=== PATIENT | male | born 1980 | race Caucasian/White ===

== ENCOUNTER 2020-09-10 16:59 | Outpatient (REF) | payer OTHER, SELFPAY | END 2020-09-10 17:00 | disposition home or self-care (01) | LOC: HO.LAB 16:59 | PROVIDERS: Visit Provider Internal Medicine | DX: Z20.822 Contact with and (suspected) exposure to COVID-19 (principal) | CPT/HCPCS: 36415; C9803; U0003 ==

== ENCOUNTER 2024-08-16 09:15 | Outpatient (REF) | payer OTHER, SELFPAY ==
[2024-08-16 09:27] LABS: MANUAL DIFF FLAG NO
[2024-08-16 10:07] LABS: Basophils Absolute Auto 0.1 X10*3/uL (0.0-0.2); Basophils Percent Auto 1.2 % (0-2); Eosinophils Absolute Auto 0.4 X10*3/uL (0.0-0.4); Eosinophils Percent Auto 5.8 % (0-4); Hematocrit 43.8 % (42.0-52.0); Hemoglobin 15.2 g/dl (14.0-18.0); Imm Gran Abs Auto 0.02 X10*3/uL (0.00-0.03); Imm Gran Pct Auto 0.3 % (0.0-0.4); Lymphocytes Absolute Auto 1.8 X10*3/uL (1.2-4.9); Lymphocytes Percent Auto 26.4 % (20-40); Mean Corpuscular HGB Conc 34.7 g/dl (31.0-36.0); Mean Corpuscular Volume 83.4 fL (80.0-98.0); Mean Platelet Volume 8.8 fL (9.4-12.4); Monocytes Absolute Auto 0.9 X10*3/uL (0.1-1.2); Monocytes Percent Auto 13.1 % (2-11); Neutrophils Absolute Auto 3.6 x10*3/uL (2.0-8.3); Neutrophils Percent Auto 53.2 % (45-73); Platelet Count 281 X10*3/uL (160-400); Red Blood Count 5.25 X10*6/uL (4.60-5.80); White Blood Count 6.7 X10*3/uL (4.8-10.8)
[2024-08-16 10:58] LABS: Alanine Aminotransferase 93 U/L (0-40); Albumin Level 4.4 g/dL (3.5-5.0); Alkaline Phosphatase 108 U/L (39-117); Anion Gap 11 (12-20); Aspartate Amino Transferase 45 U/L (5-37); Bilirubin Total 0.7 mg/dL (0.0-1.0); Blood Urea Nitrogen 14 mg/dL (9-16); Calcium 9.2 mg/dL (8.4-10.2); Carbon Dioxide 27 mmol/L (22-29); Chloride 106 mmol/L (96-108); Cholesterol 194 mg/dL (<200); Estimated Glomerular Filt Rate > 60; Glucose Random 107 mg/dL (60-115); HDL Cholesterol 37 mg/dL (>40); LDL Cholesterol Calculated 117 mg/dL (<100); Potassium 4.3 mmol/L (3.3-5.1); Sodium 140 mmol/L (135-145); Total Protein 7.5 g/dL (6.5-8.0); Triglycerides 200 mg/dL (<150)
[2024-08-16 11:18] LABS: Ferritin 572 ng/mL (20-250)
== END 2024-08-16 09:16 | disposition home or self-care (01) ==
LOC: HO.LAB 09:15
PROVIDERS: PCP Internal Medicine; Visit Provider Internal Medicine
DX: Z00.01 Encounter for general adult medical examination with abnormal findings (principal); E83.110 Hereditary hemochromatosis; M51.16 Intervertebral disc disorders with radiculopathy, lumbar region; M79.672 Pain in left foot
CPT/HCPCS: 36415; 80053; 80061; 81256; 82728; 85025

== ENCOUNTER 2024-11-19 09:03 | Outpatient (REF) | payer OTHER, SELFPAY ==
--- NOTE | ~2024-11-19 | US_ITS ---
EXAMINATION: US ABDOMEN COMPLETE WITH LIVER ELASTOGRAPHY HISTORY: elevated LFT's TECHNIQUE: Real-time grayscale ultrasound imaging of the abdomen was performed and images were reviewed. COMPARISON: There are no prior studies for comparison. FINDINGS: Liver: The right lobe of the liver measures 19.7 cm in size. The left lobe of the liver measures 9.7 cm in size. The liver demonstrates normal homogeneous echotexture. No focal mass or intrahepatic biliary ductal dilatation is identified. There is normal hepatopedal flow in the portal vein. Ultrasound elastography of the liver was performed with 10 separate measurements of the liver parenchyma with the patient in the supine position. Measurements were obtained approximately 2 cm below Wendi's capsule and perpendicular to the capsule. Images are of satisfactory quality. The median shear wave velocity is 1.36 m/s. The interquartile range/median (IQR/median) is 0.08. Gallbladder and biliary tree: The gallbladder is unremarkable, without evidence of calculi, wall thickening, or pericholecystic fluid. There is no sonographic Rodriguez sign. The common bile duct is normal in caliber measuring 3 mm. Kidneys: The right kidney measures 12.5 cm in length. The left kidney measures 11.9 cm in length. The kidneys are unremarkable, without evidence of masses, hydronephrosis, or calculi. Pancreas: The pancreatic head, neck, and body are unremarkable. The pancreatic tail is obscured by bowel gas. Spleen: The spleen is normal in size and contour, measuring 11.6 cm in length. There are calcifications in the spleen consistent with old granulomatous disease. Abdominal aorta and inferior vena cava: The visualized portions of the abdominal aorta and inferior vena cava are normal in caliber. There is no free fluid in the abdomen. US/US abdomen comp w elastography IMPRESSION: Hepatomegaly. The median shear wave velocity in the liver is 1.36 m/s, corresponding to a median liver stiffness of 5.74 kPa. The IQR/median value is 0.08. This is indicative of a quality data set. Findings are indicative of a low elastography value which rules out advanced chronic liver disease in asymptomatic patients. REFERENCE: Society of Radiologists in Ultrasound Liver Stiffness Thresholds (2020): LIVER STIFFNESS THRESHOLDS: *Shear wave velocity less than 1.3 m/s (Liver Stiffness equal or less than 5 kPa): High probability of being normal. *Shear wave velocity less than 1.7 m/s (Liver Stiffness less than 9 kPa): In the absence of other known clinical signs, rules out compensated advanced chronic liver disease. *Shear wave velocity between 1.7-2.1 m/s (Liver Stiffness 9-13 kPa): Suggestive of compensated advanced chronic liver disease but need further test for confirmation. *Shear wave velocity between 2.1-2.4 m/s (Liver Stiffness 13-17 kPa): Rules in compensated advanced chronic liver disease. *Shear wave velocity greater than 2.4 m/s (Liver Stiffness over 17 kPa): Suggestive of clinically significant portal hypertension. QUALITY OF DATA SET: *IQR/Median value equal or less than 0.15 implies a quality data set. *IQR/Median value over 0.15 implies a poor quality data set. SIGNIFICANT CHANGE FROM PRIOR EXAM: Significant change if liver stiffness measurement is 10% or greater from prior exam. OTHER CONSIDERATIONS: The stage of liver fibrosis may be overestimated in the setting of acute hepatitis, liver inflammation, elevated liver function tests, hepatic vascular congestion, obstructive cholestasis, non-fasting state, and infiltrative diseases such as amyloidosis and lymphoma. In some patients with NAFLD, the liver stiffness thresholds for compensated advanced chronic liver disease may be lower. In causes other than viral hepatitis and NAFLD, liver stiffness thresholds are not well established. Electronically signed by: All Mariee MD 11/19/2024 10:20 AM EDT
== END 2024-11-19 09:04 | disposition home or self-care (01) ==
LOC: HO.US 09:03
PROVIDERS: PCP Internal Medicine; Visit Provider Internal Medicine
DX: R74.01 Elevation of levels of liver transaminase levels (principal)
CPT/HCPCS: 76700; 76981

== ENCOUNTER → 2024-11-19 09:25 | Outpatient (BNV) | payer OTHER, SELFPAY | PROVIDERS: PCP Internal Medicine; Visit Provider Radiology Diagnostic Radiology | DX: R16.0 Hepatomegaly, not elsewhere classified (principal) | CPT/HCPCS: 76700; 76981 ==

== ENCOUNTER 2024-12-02 13:29 | Outpatient (REF) | payer OTHER, SELFPAY ==
[2024-12-02 16:04] LABS: Folate 9.6 ng/mL (> or = 4.0); Vitamin B12 294 pg/mL (200-900)
[2024-12-02 19:20] LABS: Iron 130 mcg/dL (45-160); Percent Iron Saturation 34 % (15-50); Total Iron Binding Capacity 377 mcg/dL (228-428); Unsaturated Iron Binding 247 ug/dL
[2024-12-02 19:28] LABS: Free T4 (Free Thyroxine) 1.06 ng/dL (0.71-1.85); TSH reflex Free T4 2.89 uIU/mL (0.32-4.0); Vitamin D 25-OH Total 19.4 ng/mL (>30)
[2024-12-06 00:48] LABS: PSA, Ultra Sensitive 0.59 ng/mL
== END 2024-12-02 13:30 | disposition home or self-care (01) ==
LOC: HO.LAB 13:29
PROVIDERS: PCP Internal Medicine
DX: E78.9 Disorder of lipoprotein metabolism, unspecified (principal); R79.89 Other specified abnormal findings of blood chemistry; K21.9 Gastro-esophageal reflux disease without esophagitis; R19.7 Diarrhea, unspecified; Z83.49 Family history of other endocrine, nutritional and metabolic diseases; Z12.5 Encounter for screening for malignant neoplasm of prostate; Z00.00 Encounter for general adult medical examination without abnormal findings
CPT/HCPCS: 36415; 82306; 82607; 82746; 83540; 84153; 84439; 84443; 96127

== ENCOUNTER 2024-12-02 13:29 | Outpatient (AMB) | payer OTHER, SELFPAY ==
--- NOTE | 2024-12-02 13:36 | MHC.PC.OV ---
Vital Signs 12/02/24 13:39 Height 6 ft 3.2 in Weight 291 lb 4 oz BMI 36.2 BP 122/76 Blood Pressure Location Lt brachial Position Sitting Pulse 88 Pulse Source Pulse Oximeter Temp 96.8 F Temp Source Temporal Artery Scan Pulse Oximetry (%) 94 Oxygen Delivery Method Room Air Intake Visit Reasons: establish care Intake Note: Patient is a new patient here to establish care for Hx work injury, High Iron, Possible high cholesterol, Hx of back pain. Transferring care from Dr Mortensen ([address]) . Medical records been have not requested and have not received. Requesting review of lab results from 07/2024 and Liver US done on 11/19/24. Telegraph And Teletype Operator Required: No Tallier: Present Accompanied by: Spouse Allergies No Known Allergies Allergy (Verified 12/02/24 13:50) Medication List - Last Reconciled 12/02/24 by Kimmy Browne PA-C No Known Home Meds Tobacco use date assessed: 12/02/24 Dental Screening Dental Screen Date: 12/02/24 Did you have a dental visit in the last 12 months?: No Did you have a dental problem in the last 6 months where you did not have access to dental care?: No Was dental information given to patient?: No HPI establish care HPI Details 44-year-old male coming to the office with the 1st time. Presenting with elevated serum iron levels, gastrointestinal symptoms, back pain, and a family history of hemochromatosis. Serum iron elevation was noted in July following routine checks, leading to an ultrasound identifying a large but fibrosis-free liver, mitigating concerns of hemochromatosis due to negative genetic testing. Family history is significant for hemochromatosis requiring therapeutic phlebotomy, raising concerns over hereditary conditions. Gastrointestinal discomfort is characterized by frequent defecation, sometimes accompanied by emesis, abdominal pain, and lack of consistent dietary triggers. Symptoms exhibit features of irritable bowel syndrome (IBS) with potential reflux, which suggests multifactorial causes, possibly overlapping with dietary components and reactive gastroesophageal conditions. colonoscopy: will be due this year [facility] Surgical History History of appendectomy Family History Father CVA (cerebral vascular accident) Hemochromatosis Paternal Aunt Pancreatic cancer Social History Housing: House Alcohol intake: never Patient Tobacco Use Status: Never used Tobacco e-Cigarette/Vaping Use: Never Used Second Hand Smoke Exposure: No service: No Current occupational status: employed Current occupation: [employer] Cognitive needs: No Hearing needs: No Vision needs: No Questionnaire PHQ-9 Over the last 2 weeks, how often have you been bothered by any of the following problems? 1. Little interest or pleasure in doing things: not at all 2. Feeling down, depressed, or hopeless: not at all 3. Trouble falling or staying asleep, or sleeping too much: not at all 4. Feeling tired or having little energy: not at all 5. Poor appetite or overeating: not at all 6. Feeling bad about yourself - or that you are a failure or have let yourself or your family down: not at all 7. Trouble concentrating on things, such as reading the newspaper or watching television: not at all 8. Moving or speaking so slowly that other people could have noticed. Or the opposite - being so fidgety or restless that you have been moving around a lot more than usual: not at all 9. Thoughts that you would be better off or of hurting yourself in some way: not at all Total score: 0 Depression Screening Interpretation: Negative Depression Screening Done: Yes Source: Developed by Drs. All Treadwell, Dariana Ahmadi, Suman Darby and colleagues, with an educational jazmin from [employer]. Thrive Questionnaire Date Thrive assessed: 12/02/24 I am a: Patient What is your living situation today?: I have a steady place to live Within the past 12 months, did the food you bought not last and you didn't have the money to get more?: Never true Within the past 12 months, did you worry whether your food would run out before you got money to buy more?: Never true Do you have trouble paying for medicines?: No Do you have trouble getting transportation to medical appointments?: No Do you have trouble paying your heating and electricity bill?: No Do you have trouble taking care of your child, family member or friend?: No Do you have trouble with day-to-day activities such as bathing, preparing meals, shopping, managing finances, etc.?: No Are you currently unemployed and looking for a job?: No Are you interested in more education?: No Please select the resources that you would like help with: None Currently or been in a relationship where the following occur: No concerns reported THRIVE Score: 0 AUDIT C Alcohol Use Questionnaire (AUDIT-C) 1. How often do you have a drink containing alcohol?: Monthly or less 2. How many drinks containing alcohol do you have on a typical day when you are drinking?: 1 or 2 3. How often do you have six or more drinks on one occasion?: Never Total Score: 1 RENAN-7 AMB Questionnaire RENAN-7 Date RENAN - 7 assessed: 12/02/24 Feeling nervous, anxious, or on edge: 0 = Not at all Not being able to stop or control worryin = Not at all Worrying too much about different things: 0 = Not at all Trouble relaxin = Not at all Being so restless that it is hard to sit still: 0 = Not at all Becoming easily annoyed or irritable: 0 = Not at all Feeling afraid as if something awful might happen: 0 = Not at all Total RENAN-7 score (0-4 normal; 5-9 mild; 10-14 moderate; 15-21 severe): 0 Source: Developed by Drs. All Treadwell, Dariana Ahmadi, Suman Darby and colleagues, with an educational jazmin from [employer]. RENAN-7 Assessment Billing RENAN-7 Assessment Tool: RENAN-7 Assessment 14400 Review of Systems Const Denies body aches, Denies chills, Denies fever(s), Denies headache(s) and Denies poor appetite Eyes Reports no additional complaints ENT Denies dizziness and Denies headache(s) Card Denies chest pain, Denies lightheadedness and Denies dyspnea Resp Denies cough and Denies dyspnea GI Denies abdominal pain, Denies constipation, Reports dyspepsia, Reports heartburn, Denies diarrhea, Reports loose stools, Denies nausea and Denies vomiting Reports no additional complaints Musc Reports no additional complaints and Denies abnormal gait Skin/Breast Reports system reviewed and no additional complaints, except as documented Neuro Denies abnormal gait, Denies dizziness and Denies headache(s) Psych Reports no additional complaints Physical exam (Primary Care) Vital Signs: Last Vital Signs Temp 96.8 F 12/02/24 13:39 Pulse 88 12/02/24 13:39 BP 122/76 12/02/24 13:39 Pulse Ox 94 12/02/24 13:39 Oxygen Delivery Method Room Air 12/02/24 13:39 BMI result Body Mass Index 36.2 Tobacco/Smoking Status: Tobacco use Status Tobacco use date assessed 12/02/24 12/02/24 13:38 Patient Tobacco Use Status Never used Tobacco 12/02/24 13:38 e-Cigarette/Vaping Use Never Used 12/02/24 13:38 PHQ-9: PHQ-9 Score PHQ-9: Total score 0 12/02/24 13:38 Depression Screening Interpretation: Negative Thrive Assessment: Date of Thrive Assessment Date Thrive assessed 12/02/24 12/02/24 13:38 Currently or been in a relationship where the following occur: No concerns reported Const General: cooperative, healthy appearing, comfortable and no acute distress Orientation/consciousness: patient oriented x3 HENMT Head: Yes normocephalic Ears: hearing grossly normal bilaterally General nose exam: Normal external nose present Eyes General: appearance normal, both eyes and all related structures Conjunctivae: conjunctivae normal Neck Neck: Yes full ROM and Yes no lymphadenopathy Resp Effort & Inspection: normal respiratory effort Auscultation: clear to auscultation bilaterally, no crackles, no rales, no rhonchi and no wheezes Cardio Rate: regular rate Rhythm: regular rhythm Skin General skin exam: no rashes or lesions noted Neuro General: patient oriented x3 Gait exam (Neuro): Normal gait present Extrem General: Yes normal to inspection, Yes full ROM and No edema Psych Affect: normal affect Attitude: cooperative Insight: Good insight present (Psych) Judgement: Good judgement present (Psych) Coding Level of Care Code New Pt Level 4 (71168) Diagnoses Borderline high cholesterol E78.9 High serum ferritin R79.89 Family history of hemochromatosis Z83.49 GERD (gastroesophageal reflux disease) K21.9 Frequent loose stools R19.7 Additional Codes ERNAN-7 Assessment Billing - RENAN-7 Assessment Tool: RENAN-7 Assessment 97960 ([id number]) Assessment & Plan Assessment & Plan (1) Borderline high cholesterol: Code(s): E78.9 - Disorder of lipoprotein metabolism, unspecified Category: Medical Plan: Avoid foods that are high in cholesterol such as red meat, fried foods, eggs and baked goods. Triglyceride goal of less than 150 and LDL goal of less than 130 (2) High serum ferritin: Code(s): R79.89 - Other specified abnormal findings of blood chemistry Category: Medical Plan: Patient having high serum ferritin plan to order for complete iron profile and referral placed to hematology for further evaluation. Patient has a family history of hemochromatosis in his father who requires routine phlebotomy. Recent liver fibrosis scan negative (3) Family history of hemochromatosis: Code(s): Z83.49 - Family history of other endocrine, nutritional and metabolic diseases Category: Medical Plan: See above plan (4) GERD (gastroesophageal reflux disease): Code(s): K21.9 - Gastro-esophageal reflux disease without esophagitis Category: Medical Plan: Avoid trigger foods such as citrus, tomato products, soda, caffeine, spicy foods and other foods that may be irritating to your stomach. Avoid laying flat 3-4 hours after eating and elevate the head of the bed 30 degrees to prevent acid from moving into the esophagus. Plan to start on omeprazole and monitor for symptom improvement. (5) Frequent loose stools: Code(s): R19.7 - Diarrhea, unspecified Category: Medical Plan: Patient has symptoms consistent with possible IBS. Advised low FODMAP diet, incorporating a fiber supplement and using simethicone as needed for gas and bloating. Patient will follow up in 3 months at that time can consider referral to GI if symptoms have not improved. Patient denies any change in stool caliber or blood in the stool. Plan After our conversation, we determined that monitoring elevated serum iron levels is necessary, and I advised follow-up with hematology due to the patient?s family history of hemochromatosis. The proposed management for gastrointestinal concerns includes beginning a low FODMAP diet, adding a fiber supplement, and prescribing omeprazole for symptom relief from reflux. I provided instructions on utilizing simethicone as needed for gas-related discomfort. We also discussed the importance of dietary modifications to address elevated triglycerides and cholesterol levels. I emphasized dietary changes and exercises as part of cardiovascular risk reduction efforts. Thyroid function and further bloodwork evaluations have been requested to supplement our understanding of the patient's health status. Additionally, lipid management shall be monitored through a planned lipid panel. Given symptoms of back pain, I recommended modified physical activity until the condition improves. This note was constructed using voice recognition software. While every effort has been made to ensure accuracy and field pipe lines supervisor, still areas may have been included sometimes these areas may affect the content or meeting of the given symptoms. Total time spent caring for the patient today was 30 minutes. This includes time spent before the visit reviewing the chart, time spent during the visit, and time spent after the visit and documentation. Patient was informed and verbally consented to the use of an ambient scribe for clinic note documentation during this visit. Orders: Orders IRON PROFILE Today R79.89 - Other specified abnormal findings of blood chemistry TSH reflex Free T4 Today Z00.00 - Encounter for general adult medical examination without abnormal findings Vitamin B12 and Folate Today Z00.00 - Encounter for general adult medical examination without abnormal findings Vitamin D 25-OH Total Today Z00.00 - Encounter for general adult medical examination without abnormal findings PSA, Ultra Sensitive Today Z00.00 - Encounter for general adult medical examination without abnormal findings Free T4 (Free Thyroxine) Today Z00.00 - Encounter for general adult medical examination without abnormal findings Referrals Hematology & Oncology Referral R79.89 - Other specified abnormal findings of blood chemistry, Z83.49 - Family history of other endocrine, nutritional and metabolic diseases Medications: New simethicone (Gas-X Extra Strength) 125 mg PO TID PRN 30 tabs 0RF abdominal distention omeprazole 20 mg PO DAILY 90 caps 0RF
[2024-12-02 13:39] VITALS: BP 122/76; PULSE 88; TEMP 36; O2SAT 94; BMI 36.2
== END 2024-12-02 14:22 | disposition home or self-care (01) ==
LOC: HO.HMCH 13:30
DX: E78.9 Disorder of lipoprotein metabolism, unspecified (principal); R79.89 Other specified abnormal findings of blood chemistry; Z83.49 Family history of other endocrine, nutritional and metabolic diseases; K21.9 Gastro-esophageal reflux disease without esophagitis; R19.7 Diarrhea, unspecified

== ENCOUNTER → 2024-12-30 10:55 | Outpatient (BNV) | payer OTHER, SELFPAY | PROVIDERS: Visit Provider Internal Medicine | DX: R77.8 Other specified abnormalities of plasma proteins (principal) | CPT/HCPCS: 99204 ==

== ENCOUNTER 2025-03-05 10:24 | Outpatient (AMB) | payer OTHER, SELFPAY ==
--- NOTE | 2025-03-05 10:28 | A.OFFPC_ITS ---
Vital Signs 03/05/25 10:30 Height 6 ft 4 in Weight 286 lb 4 oz BMI 34.8 BP 138/80 Blood Pressure Location Lt brachial Position Sitting Pulse 66 Pulse Source Pulse Oximeter Pulse Oximetry (%) 98 Oxygen Delivery Method Room Air Intake Visit Reasons: f/u GERD Youth Counselor Required: No Accompanied by: Self / Same As Patient Allergies No Known Allergies Allergy (Verified 03/05/25 11:02) Medication List - Last Reconciled 03/05/25 by Kimmy Browne PA-C cholecalciferol (vitamin D3) 25 mcg PO DAILY cyanocobalamin (vitamin B-12) (Vitamin B-12) 500 mcg (1/2 x 1,000 mcg) PO DAILY omeprazole 20 mg PO DAILY Tobacco use date assessed: 12/02/24 Dental Screening Dental Screen Date: 03/05/25 Did you have a dental visit in the last 12 months?: No Did you have a dental problem in the last 6 months where you did not have access to dental care?: No Was dental information given to patient?: No HPI f/u GERD HPI Details 44-year-old male with past medical histo ry of hypercholesterolemia, GERD last seen 11/2024 coming in for follow up.? In review of the notes, patient was seen by Hematology/Oncology for elevated ferritin advised to cut back on dietary iron sources and follow up in 6 months.? Presenting with gastroesophageal reflux disease and monitoring of iron levels due to a family history of hemochromatosis. The patient reports using omeprazole daily, which has been effective in managing symptoms. He experiences coughing in the morning, which is attributed to acid reflux. The patient has been advised to avoid eating 2-3 hours before bedtime and to sleep with an elevated pillow. The patient has a family history of hemochromatosis and has been monitored by a cloth finishing range back tender. Recent lab results show a decrease in iron levels from 572 to 266, and liver tests have normalized. The patient reports difficulty swallowing, requiring frequent drinking during meals to prevent food from getting stuck. A barium swallow test has been ordered to assess for esophageal narrowing. [facility] Medical History Back injury Surgical History History of appendectomy Family History Father CVA (cerebral vascular accident) Hemochromatosis Paternal Aunt Pancreatic cancer Social History Household Members: Spouse and Children Housing: House Alcohol intake: never Patient Tobacco Use Status: Never used Tobacco e-Cigarette/Vaping Use: Never Used Second Hand Smoke Exposure: No service: No Current occupational status: employed Current occupation: [employer] Cognitive needs: No Hearing needs: No Vision needs: No Questionnaire PHQ-9 Over the last 2 weeks, how often have you been bothered by any of the following problems? 1. Little interest or pleasure in doing things: not at all 2. Feeling down, depressed, or hopeless: not at all 3. Trouble falling or staying asleep, or sleeping too much: not at all 4. Feeling tired or having little energy: not at all 5. Poor appetite or overeating: not at all 6. Feeling bad about yourself - or that you are a failure or have let yourself or your family down: not at all 7. Trouble concentrating on things, such as reading the newspaper or watching television: not at all 8. Moving or speaking so slowly that other people could have noticed. Or the opposite - being so fidgety or restless that you have been moving around a lot more than usual: not at all 9. Thoughts that you would be better off or of hurting yourself in some way: not at all Total score: 0 Depression Screening Interpretation: Negative Depression Screening Done: Yes 31105 - PHQ-9 Billing: Yes Source: Developed by Drs. All Treadwell, Dariana Ahmadi, Suman Darby and colleagues, with an educational jazmin from [employer]. Thrive Questionnaire Date Thrive assessed: 03/05/25 I am a: Patient What is your living situation today?: I have a steady place to live Within the past 12 months, did the food you bought not last and you didn't have the money to get more?: Never true Within the past 12 months, did you worry whether your food would run out before you got money to buy more?: Never true Do you have trouble paying for medicines?: No Do you have trouble getting transportation to medical appointments?: No Do you have trouble paying your heating and electricity bill?: No Do you have trouble taking care of your child, family member or friend?: No Do you have trouble with day-to-day activities such as bathing, preparing meals, shopping, managing finances, etc.?: No Are you currently unemployed and looking for a job?: No Are you interested in more education?: No Please select the resources that you would like help with: None Currently or been in a relationship where the following occur: No concerns reported THRIVE Score: 0 RENAN-7 AMB Questionnaire RENAN-7 Date RENAN - 7 assessed: 03/05/25 Feeling nervous, anxious, or on edge: 0 = Not at all Not being able to stop or control worryin = Not at all Worrying too much about different things: 0 = Not at all Trouble relaxin = Not at all Being so restless that it is hard to sit still: 0 = Not at all Becoming easily annoyed or irritable: 0 = Not at all Feeling afraid as if something awful might happen: 0 = Not at all Total RENAN-7 score (0-4 normal; 5-9 mild; 10-14 moderate; 15-21 severe): 0 Source: Developed by Drs. All Treadwell, Dariana Ahmadi, Suman Darby and colleagues, with an educational jazmin from [employer]. RENAN-7 Assessment Billing RENAN-7 Assessment Tool: RENAN-7 Assessment 27389 Review of Systems Const Denies body aches, Denies chills, Denies fever(s), Denies headache(s) and Denies poor appetite Eyes Reports no additional complaints ENT Reports dysphagia, Denies dizziness, Denies headache(s) and Denies odynophagia Card Denies chest pain, Denies irregular heart rhythm, Denies lightheadedness and Denies dyspnea Resp Denies dyspnea GI Denies abdominal pain, Denies constipation, Reports dysphagia, Denies diarrhea, Denies nausea, Denies odynophagia and Denies vomiting Musc Reports no additional complaints and Denies abnormal gait Skin/Breast Reports system reviewed and no additional complaints, except as documented Neuro Denies abnormal gait, Denies dizziness and Denies headache(s) Psych Reports no additional complaints Physical exam (Primary Care) Vital Signs: Last Vital Signs Pulse 66 03/05/25 10:30 BP 138/80 03/05/25 10:30 Pulse Ox 98 03/05/25 10:30 Oxygen Delivery Method Room Air 03/05/25 10:30 BMI result Body Mass Index 34.8 Tobacco/Smoking Status: Tobacco use Status Tobacco use date assessed 12/02/24 03/05/25 10:35 Patient Tobacco Use Status Never used Tobacco 03/05/25 10:35 e-Cigarette/Vaping Use Never Used 03/05/25 10:35 PHQ-9: PHQ-9 Score PHQ-9: Total score 0 03/05/25 10:57 Depression Screening Interpretation: Negative Thrive Assessment: Date of Thrive Assessment Date Thrive assessed 03/05/25 03/05/25 10:35 Currently or been in a relationship where the following occur: No concerns reported Const General: cooperative, healthy appearing, comfortable and no acute distress Orientation/consciousness: patient oriented x3 HENMT Head: Yes normocephalic Ears: hearing grossly normal bilaterally General nose exam: Normal external nose present Eyes General: appearance normal, both eyes and all related structures Conjunctivae: conjunctivae normal Neck Neck: Yes full ROM and Yes no lymphadenopathy Resp Effort & Inspection: normal respiratory effort Auscultation: clear to auscultation bilaterally, no crackles, no rales, no rhonchi and no wheezes Cardio Rate: regular rate Rhythm: regular rhythm Skin General skin exam: no rashes or lesions noted Neuro General: patient oriented x3 Gait exam (Neuro): Normal gait present Extrem General: Yes normal to inspection, Yes full ROM and No edema Psych Affect: normal affect Attitude: cooperative Insight: Good insight present (Psych) Judgement: Good judgement present (Psych) Coding Level of Care Code Est Pt Level 3 (14569) Diagnoses Borderline high cholesterol E78.9 High serum ferritin R79.89 Family history of hemochromatosis Z83.49 GERD (gastroesophageal reflux disease) K21.9 Frequent loose stools R19.7 Dysphagia R13.10 Additional Codes RENAN-7 Assessment Billing - RENAN-7 Assessment Tool: RENAN-7 Assessment 53639 ([id number]) PHQ-9 - 73302 - PHQ-9 Billing: Yes ([id number]) Assessment & Plan Assessment & Plan (1) Borderline high cholesterol: Code(s): E78.9 - Disorder of lipoprotein metabolism, unspecified Category: Medical Plan: Avoid foods that are high in cholesterol such as red meat, fried foods, eggs and baked goods. Triglyceride goal of less than 150 and LDL goal of less than 130. Plan to repeat labs. (2) High serum ferritin: Code(s): R79.89 - Other specified abnormal findings of blood chemistry Category: Medical Plan: Labs are being monitored by hematology at this time. (3) Family history of hemochromatosis: Code(s): Z83.49 - Family history of other endocrine, nutritional and metabolic diseases Category: Medical Plan: See above plan (4) GERD (gastroesophageal reflux disease): Code(s): K21.9 - Gastro-esophageal reflux disease without esophagitis Category: Medical Plan: Avoid trigger foods such as citrus, tomato products, soda, caffeine, spicy foods and other foods that may be irritating to your stomach. Avoid laying flat 3-4 hours after eating and elevate the head of the bed 30 degrees to prevent acid from moving into the esophagus. Continue on Omeprazole but increase to BID. (5) Frequent loose stools: Code(s): R19.7 - Diarrhea, unspecified Category: Medical Plan: Stools have been improving and has not been having loose stools or diarrhea. (6) Dysphagia: Code(s): R13.10 - Dysphagia, unspecified Category: Medical Plan: Plan to order for barium swallow for further evaluation. Advised patient to take small bites with plenty of water to avoid choking episodes. Plan The patient will continue using omeprazole for gastroesophageal reflux disease, with an increased dosage to 20 mg twice daily if needed, to manage morning cough and reflux symptoms. Dietary modifications, including avoiding meals 2-3 hours before bedtime and sleeping with an elevated pillow, are recommended to alleviate symptoms. A barium swallow test has been ordered to evaluate dysphagia and potential esophageal narrowing. The patient is advised to take small bites and drink plenty of water during meals to prevent choking. For hyperlipidemia, dietary changes are encouraged, and cholesterol levels will be re-evaluated in two weeks with fasting blood work. Vitamin D and supplementation will continue to address deficiencies. The patient will follow up in six months for an annual check-up, with interim monitoring of lab results and the barium swallow test outcomes. The patient is advised to maintain regular physical activity and monitor dietary intake to support overall health. This note was constructed using voice recognition software. While every effort has been made to ensure accuracy and osd clerk, still areas may have been included sometimes these areas may affect the content or meeting of the given symptoms. Total time spent caring for the patient today was 20 minutes. This includes time spent before the visit reviewing the chart, time spent during the visit, and time spent after the visit and documentation. Patient was informed and verbally consented to the use of an ambient scribe for clinic note documentation during this visit. Orders: Orders Lipid Panel Today E78.00 - Pure hypercholesterolemia, unspecified FL barium swallow Today R13.10 - Dysphagia, unspecified Medications: Changed From omeprazole 20 mg PO DAILY 90 caps 2RF To omeprazole 20 mg PO BID 180 caps 2RF Refilled omeprazole 20 mg PO DAILY 90 caps 2RF Discontinued simethicone (Gas-X Extra Strength) Discontinued Reason: Patient no longer taking 125 mg PO TID PRN 30 tabs 0RF abdominal distention
[2025-03-05 10:30] VITALS: BP 138/80; PULSE 66; O2SAT 98; BMI 34.8
== END 2025-03-05 11:21 | disposition home or self-care (01) ==
LOC: HO.HMCH 10:26
DX: E78.9 Disorder of lipoprotein metabolism, unspecified (principal); R79.89 Other specified abnormal findings of blood chemistry; Z83.49 Family history of other endocrine, nutritional and metabolic diseases; K21.9 Gastro-esophageal reflux disease without esophagitis; R19.7 Diarrhea, unspecified; R13.10 Dysphagia, unspecified

== ENCOUNTER → 2025-03-05 10:24 | Outpatient (BNVA) | payer OTHER, SELFPAY | PROVIDERS: PCP Internal Medicine | DX: K21.9 Gastro-esophageal reflux disease without esophagitis (principal); E78.00 Pure hypercholesterolemia, unspecified; R79.89 Other specified abnormal findings of blood chemistry; R19.7 Diarrhea, unspecified; R13.10 Dysphagia, unspecified; Z83.49 Family history of other endocrine, nutritional and metabolic diseases | CPT/HCPCS: 96127 ==

== ENCOUNTER 2025-06-20 08:23 | Outpatient (REF) | payer OTHER, SELFPAY ==
--- NOTE | ~2025-06-20 | FL_ITS ---
EXAMINATION: XR BARIUM SWALLOW CLINICAL INFORMATION: Dysphagia COMPARISON: None available. TECHNIQUE: Routine upright barium swallow with thick barium and barium coated saltine crackers and thin barium in prone lying position was performed. FINDINGS: The oral administration of thick barium and effervescent granules is normal propagation bolus from the oral cavity through the pharynx, esophagus into stomach without obstruction, narrowing or stricture. There is no extrinsic compression. The G junction is widely patent. On oral administration of saltine crackers and thick barium there is normal oral mastication and propagation of bolus from the oral cavity through the pharynx, esophagus into stomach without obstruction. Incidental finding of a small sliding hiatal hernia noted. No reflux seen. FLUOROSCOPY TIME: 2 minutes and 37 seconds DOSE AREA PRODUCT: 3266 uGy-m2 (microgray-meter squared) FL/FL barium swallow IMPRESSION: Small sliding hiatal hernia without reflux. Otherwise barium swallow is unremarkable. Electronically signed by: Pankaj Brandt MD 06/20/2025 09:51 AM EDT
== END 2025-06-20 08:24 | disposition home or self-care (01) ==
LOC: HO.XRAY 08:23
DX: R13.10 Dysphagia, unspecified (principal)
CPT/HCPCS: 74220

== ENCOUNTER → 2025-06-20 08:25 | Outpatient (BNV) | payer OTHER, SELFPAY | PROVIDERS: Visit Provider Radiology Diagnostic Radiology | DX: K44.9 Diaphragmatic hernia without obstruction or gangrene (principal); R13.10 Dysphagia, unspecified | CPT/HCPCS: 74221 ==